=== PATIENT | female | born 2000 | race Caucasian/White ===

== ENCOUNTER 2022-01-13 19:16 | Emergency (ER) | payer OTHER | END 2022-01-13 20:49 | disposition home or self-care (01) | LOC: CSHERS 19:16 | DX: L05.91 Pilonidal cyst without abscess (principal) | CPT/HCPCS: 99282 ==

== ENCOUNTER 2023-11-22 12:28 | Outpatient (CLI) | payer BC, OTHER | END 2023-11-22 12:29 | disposition home or self-care (01) | LOC: CSHWCC 12:28 | PROVIDERS: ATTEND Nurse Practitioner Family | DX: L05.91 Pilonidal cyst without abscess (principal) | CPT/HCPCS: 11042; 99214; G0463 ==

== ENCOUNTER 2023-12-20 12:33 | Outpatient (CLI) | payer BC | END 2023-12-20 12:34 | disposition home or self-care (01) | LOC: CSHWCC 12:33 | PROVIDERS: ATTEND Nurse Practitioner Family | DX: L05.91 Pilonidal cyst without abscess (principal) | CPT/HCPCS: 11042 ==

== ENCOUNTER 2023-12-25 10:54 | Outpatient (CLI) | payer BC | END 2023-12-25 10:55 | disposition home or self-care (01) | LOC: CSHWCC 10:54 | PROVIDERS: ATTEND Nurse Practitioner Family | DX: L05.91 Pilonidal cyst without abscess (principal) | CPT/HCPCS: 11042 ==

== ENCOUNTER 2023-12-27 14:03 | Outpatient (CLI) | payer BC ==
[~2023-12-27 14:03] MED LIST: Magnevist 469MG/ML 20 ML VIAL ONE
== END 2023-12-27 14:04 | disposition home or self-care (01) ==
LOC: CSHMRI 14:03
PROVIDERS: ATTEND Nurse Practitioner Family
DX: L05.91 Pilonidal cyst without abscess (principal); L05.92 Pilonidal sinus without abscess
CPT/HCPCS: 72197; A9579

== ENCOUNTER 2024-01-01 09:58 | Outpatient (CLI) | payer BC | END 2024-01-01 09:59 | disposition home or self-care (01) | LOC: CSHWCC 09:58 | PROVIDERS: ATTEND Nurse Practitioner Family | DX: L05.91 Pilonidal cyst without abscess (principal) | CPT/HCPCS: 11042 ==

== ENCOUNTER 2024-01-10 10:28 | Outpatient (CLI) | payer BC | END 2024-01-10 10:29 | disposition home or self-care (01) | LOC: CSHWCC 10:28 | PROVIDERS: ATTEND Nurse Practitioner Family | DX: L05.91 Pilonidal cyst without abscess (principal) | CPT/HCPCS: 11042 ==

== ENCOUNTER 2024-01-15 10:27 | Outpatient (CLI) | payer BC | END 2024-01-15 10:28 | disposition home or self-care (01) | LOC: CSHWCC 10:27 | PROVIDERS: ATTEND Nurse Practitioner Family | DX: L05.91 Pilonidal cyst without abscess (principal) | CPT/HCPCS: 99213; G0463 ==

== ENCOUNTER 2024-01-22 10:06 | Outpatient (CLI) | payer BC | END 2024-01-22 10:07 | disposition home or self-care (01) | LOC: CSHWCC 10:06 | PROVIDERS: ATTEND Nurse Practitioner Family | DX: L05.91 Pilonidal cyst without abscess (principal) | CPT/HCPCS: 99212; G0463 ==

== ENCOUNTER 2024-03-03 14:57 | Outpatient (CLI) | payer BC ==
[2024-03-03 15:56] LABS: BHCG - Serum Negative (NEGATIVE); Pregs Control Background? CLEAR/WHITE (CLR/WHITE); Pregs Control Bar Appear? YES (CONTROL BAR)
== END 2024-03-03 14:58 | disposition home or self-care (01) ==
LOC: CSHLAB 14:57
PROVIDERS: ATTEND Surgery
DX: Z01.812 Encounter for preprocedural laboratory examination (principal); L05.91 Pilonidal cyst without abscess
CPT/HCPCS: 84703

== ENCOUNTER 2024-03-06 05:59 | Day surgery (SDC) | payer BC ==
[2024-03-03 15:22] VITALS: BMI 39.0
[2024-03-06] MEDS ORDERED: Bupivacaine HCl 0.5%/Epinephrine 1:200,000/PF 30 ml Vial ONE (06:55)
[2024-03-06] MEDS ORDERED: CEFAZOLIN 2 GM VIAL ONE (07:13)
[2024-03-06] MEDS ORDERED: fentaNYL 50 mcg/mL 1 mL Vial ONE ×6 (07:19→09:26)
[2024-03-06] MEDS ORDERED: PROPOFOL 20 ML ONE (07:19)
[2024-03-06] MEDS ORDERED: Rocuronium Bromide 10 MG/ML (10ML VIAL) ONE (07:19)
[2024-03-06] MEDS ORDERED: Lidocaine 1% PF 5 ML VIAL ONE (07:19)
[2024-03-06] MEDS ORDERED: Midazolam HCl 2 mg/2 ml Vial ONE (07:25)
[2024-03-06] MEDS ORDERED: Ondansetron PF 4 MG/2 ML Vial ONE (07:54)
[2024-03-06] MEDS ORDERED: Dexamethasone 20 MG/5 ML VIAL ONE (07:54)
[2024-03-06] MEDS ORDERED: SUGAMMADEX SODIUM 200 MG/2 ML VIAL ONE (08:12)
[2024-03-06] MEDS ORDERED: HYDROcodone/Acetaminophen 5/325 mg Tablet ONE (10:13)
== END 2024-03-06 12:23 | disposition home or self-care (01) ==
LOC: CSHSDC 05:59
PROVIDERS: ATTEND Surgery
PROC: 0HX8XZZ Transfer Buttock Skin, External Approach (ICD-10-PCS; principal; 2024-03-06)
DX: L05.91 Pilonidal cyst without abscess (principal); E66.01 Morbid (severe) obesity due to excess calories; I10 Essential (primary) hypertension; J45.909 Unspecified asthma, uncomplicated; F41.9 Anxiety disorder, unspecified; F90.9 Attention-deficit hyperactivity disorder, unspecified type; Z68.39 Body mass index [BMI] 39.0-39.9, adult; Z79.899 Other long term (current) drug therapy
CPT/HCPCS: 88304; J1100; J2250; J2405; J2704; J3010